=== PATIENT | male | born 1960 | race Caucasian/White ===

== ENCOUNTER 2020-10-26 07:56 | Outpatient (CLI) | payer OTHER ==
[2020-10-26] MEDS ORDERED: Iopamidol-370 76% 500 ML 1 ML ONE (13:48)
== END 2020-10-26 07:57 | disposition home or self-care (01) ==
LOC: BICCT 07:56
PROVIDERS: ATTEND Urology
DX: C61 Malignant neoplasm of prostate (principal); R16.0 Hepatomegaly, not elsewhere classified; K76.0 Fatty (change of) liver, not elsewhere classified; K76.89 Other specified diseases of liver; N28.1 Cyst of kidney, acquired; M89.8X8 Other specified disorders of bone, other site
CPT/HCPCS: 74177; Q9967

== ENCOUNTER 2020-11-03 09:53 | Outpatient (CLI) | payer OTHER | END 2020-11-03 09:54 | disposition home or self-care (01) | LOC: BICRAD 09:53 | PROVIDERS: ATTEND Urology | DX: C61 Malignant neoplasm of prostate (principal); Z87.891 Personal history of nicotine dependence | CPT/HCPCS: 71046 ==

== ENCOUNTER 2020-12-27 09:42 | Outpatient (CLI) | payer OTHER | END 2020-12-27 09:43 | disposition home or self-care (01) | LOC: LABBT 09:42 | PROVIDERS: ATTEND Urology | DX: Z01.818 Encounter for other preprocedural examination (principal); Z20.822 Contact with and (suspected) exposure to COVID-19; Z12.5 Encounter for screening for malignant neoplasm of prostate; C61 Malignant neoplasm of prostate; R97.20 Elevated prostate specific antigen [PSA]; D45 Polycythemia vera; R74.8 Abnormal levels of other serum enzymes; K40.90 Unilateral inguinal hernia, without obstruction or gangrene, not specified as recurrent; K42.9 Umbilical hernia without obstruction or gangrene; N40.0 Benign prostatic hyperplasia without lower urinary tract symptoms; N52.9 Male erectile dysfunction, unspecified; Z87.891 Personal history of nicotine dependence | CPT/HCPCS: 71046; 80053; 81001; 85027; 85610; 85730; 86850; 86900; 86901; 87086; 93005; 93010; U0003; U0005 ==

== ENCOUNTER 2020-12-27 14:00 | Inpatient (IN) | payer OTHER ==
[2020-12-27 12:40] LABS: Bilirubin Neg (Negative); Blood, Urine Negative (Negative); Clarity Clear (Clear); Glucose, Urine (Dipstick) Normal (Negative); Ketone, Urine Negative (Negative); Leukocyte Negative (Negative); Nitrite Negative (Negative); Protein, Urine (Dipstick) Negative (Neg-Trace); Specific Gravity, Urine 1.015 (1.002-1.036); Urobilinogen Normal mg/dL (Less than 2)
[2020-12-27 12:47] LABS: Hemoglobin 15.7 g/dL (13.5-17.5); Mean Corpuscular HGB CONC 32.6 g/dL (32.0-36.0); Mean Corpuscular Hemoglobin 31.4 pg (27.0-33.0); Mean Corpuscular Volume 96.2 fl (81.2-95.1); Mean Platelet Volume 11.3 fl (7.4-10.4); Platelet Count 209 10x3/uL (150-450); RBC Distribution Width 12.4 % (11.5-14.5); White Blood Cell (WBC) Count 6.7 10x3/uL (3.5-10.5)
[2020-12-27 12:48] LABS: RBC/HPF 0-3 HPF (0-3); WBC/HPF 0-3 HPF (0-3)
[2020-12-27 12:49] LABS: Bacteria/HPF Rare-Few HPF (None Seen); Mucous/LPF Few LPF (<2+); Squamous Epithelial None Seen HPF (0-3)
[2020-12-27 13:09] LABS: PTT 27.6 sec (22.0-33.0); Prothrombin Time 10.9 sec (9.5-12.1)
[2020-12-27 13:14] LABS: ALT (SGPT) 65 U/L (8-55); AST (SGOT) 33 U/L (5-34); Albumin 4.7 g/dL (3.5-5.0); Alkaline Phosphatase 65 U/L (40-110); Anion Gap 14 mmol/L (10-20); BUN (Urea Nitrogen) 20 mg/dL (8.4-25.7); Bilirubin, Total 0.7 mg/dL (0.2-1.2); Calc. Creatinine Clearance 0 mL/min (70-130); Calcium 10.1 mg/dL (7.8-10.44); Carbon Dioxide 27 mmol/L (22-29); Chloride 101 mmol/L (98-107); Globulin 3.2 g/dL (2.4-3.5); Glucose 120 mg/dL (70-105); Potassium 4.5 mmol/L (3.5-5.1); Protein, Total 7.9 g/dL (6.0-8.3); Sodium 137 mmol/L (136-145)
[2020-12-28 11:48] LABS: SARS-CoV-2 PCR by NAA Not Detected (NotDetected)
[2020-12-29 10:51] VITALS: BMI 31.0
[2021-01-01] MEDS ORDERED: Fentanyl 250 MCG/5 ML VIAL ONE (06:09)
[2021-01-01] MEDS ORDERED: Levofloxacin 500 mg/D5W 100 ml Premix Bag ONE (06:13)
[2021-01-01] MEDS ORDERED: ceFOXitin 1 GM VIAL ONE ×2 (06:15→09:41)
[2021-01-01] MEDS ORDERED: Sodium Chloride 0.9% 100 ML ONE (06:15)
[2021-01-01] MEDS ORDERED: Bupivacaine 0.25% HCL 30 ML VIAL ONE (07:14)
[2021-01-01] MEDS ORDERED: Lidocaine 1% w/Epinephrine 1:100K 20 ML VIAL ONE (07:14)
[2021-01-01] MEDS ORDERED: Midazolam HCl 2 mg/2 ml Vial ONE (07:19)
[2021-01-01] MEDS ORDERED: Rocuronium Bromide 50 MG/5 ML VIAL ONE (07:27)
[2021-01-01] MEDS ORDERED: Dexamethasone 20 MG/5 ML VIAL ONE (07:39)
[2021-01-01] MEDS ORDERED: Rocuronium Bromide 10 MG/ML (10ML VIAL) ONE (07:39)
[2021-01-01] MEDS ORDERED: Lidocaine 1% PF 5 ML VIAL ONE (07:39)
[2021-01-01] MEDS ORDERED: PROPOFOL 200 MG/20 ML VIAL ONE (07:39)
[2021-01-01] MEDS ORDERED: Bupivacaine HCl 0.5%/Epinephrine 1:200,000/PF 30 ml Vial ONE (07:39)
[2021-01-01] MEDS ORDERED: Ketorolac Tromethamine 30 MG/ML VIAL ONE (07:39)
[2021-01-01] MEDS ORDERED: Ondansetron PF 4 MG/2 ML Vial ONE (07:39)
[2021-01-01] MEDS ORDERED: Glycopyrrolate 0.2 MG/ML 5 ML SYRINGE ONE (07:39)
[2021-01-01] MEDS ORDERED: Ondansetron HCl/PF 4 MG/2 ML Vial IVP PRN (09:34)
[2021-01-01] MEDS ORDERED: Promethazine HCl 25 MG/ML VIAL IM PRN (09:34)
[2021-01-01] MEDS ORDERED: Promethazine HCl 25 MG/ML VIAL SLOW IVP PRN (09:34)
[2021-01-01] MEDS ORDERED: Fentanyl 100 MCG/2 ML VIAL ONE ×2 (10:49→12:46)
[2021-01-01] MEDS ORDERED: B & O ONE (12:11)
[2021-01-01] MEDS ORDERED: Mag-Al 1200 mg/1200 mg/30 ML UDCUP PO PRN (13:43)
[2021-01-01] MEDS ORDERED: diphenhydrAMINE 50 MG/ML VIAL IVP PRN (13:43)
[2021-01-01] MEDS ORDERED: Phenazopyridine HCl 97.5 MG TABLET PO PRN (13:43)
[2021-01-01] MEDS ORDERED: Acetaminophen 500 MG TAB PO PRN (13:43)
[2021-01-01] MEDS ORDERED: hydrALAZINE 20 MG/ML VIAL SLOW IVP PRN ×2 (13:43)
[2021-01-01] MEDS ORDERED: Morphine 2 MG/ML VIAL SLOW IVP PRN (13:43)
[2021-01-01] MEDS ORDERED: HYDROcodone/Acetaminophen 10/325 mg Tablet PO PRN ×2 (13:43)
[2021-01-01] MEDS ORDERED: Morphine 4 MG/ML VIAL SLOW IVP PRN (13:43)
[2021-01-01] MEDS ORDERED: Ondansetron PF 4 MG/2 ML Vial IVP PRN (13:43)
[2021-01-01] MEDS ORDERED: Oxybutynin 5 MG TAB PO PRN (13:43)
[2021-01-01] MEDS ORDERED: Zolpidem Tartrate 5 MG TAB PO PRN (13:43)
[2021-01-01] MEDS ORDERED: traMADol HCl 50 MG TAB PO PRN (13:48)
[2021-01-01 15:24] LABS: #Monocytes 0.5 thou/uL (0.11-0.59); #Neutrophils 17.9 thou/uL (1.40-6.50); %Eosinophils 0.2 % (0.0-10.0); %Lymphocytes 5.1 % (21.0-51.0); %Monocytes 2.6 % (0.0-10.0); Mean Corpuscular HGB CONC 34.9 g/dL (32.0-36.0); Mean Corpuscular Hemoglobin 33.6 pg (27.0-31.0); Mean Corpuscular Volume 96.3 fL (78.0-98.0); Mean Platelet Volume 8.7 fL (7.4-10.4); Platelet Count 205 thou/uL (130-400); RBC Distribution Width 11.6 % (11.5-14.5); Red Blood Cell (RBC) Count 4.46 mill/uL (4.70-6.10); White Blood Cell (WBC) Count 19.5 thou/uL (4.8-10.8)
[2021-01-01 15:40] LABS: Anion Gap 14 mmol/L (10-20); BUN (Urea Nitrogen) 27 mg/dL (8.4-25.7); Calc. Creatinine Clearance 106 mL/min (70-130); Calcium 8.3 mg/dL (7.8-10.44); Carbon Dioxide 23 mmol/L (22-29); Chloride 106 mmol/L (98-107); Glucose 177 mg/dL (70-105); Potassium 4.3 mmol/L (3.5-5.1); Sodium 139 mmol/L (136-145)
[2021-01-01] MEDS: Sodium Chloride 0.9% 1,000 ML IV SCH (19:28)
[2021-01-01] MEDS: Docusate 100 MG CAP PO SCH (20:05)
[2021-01-01] MEDS: Famotidine/PF 20 mg/2ml Vial SLOW IVP SCH (20:05)
[2021-01-02 05:29] LABS: #Eosinphils 0.1 thou/uL (0.0-0.7); #Lymphocytes 1.5 thou/uL (1.20-3.40); #Monocytes 1.1 thou/uL (0.11-0.59); %Basophils 0.2 % (0.0-1.0); %Eosinophils 0.5 % (0.0-10.0); %Lymphocytes 12.8 % (21.0-51.0); %Monocytes 9.2 % (0.0-10.0); %Neutrophils 77.5 % (42.0-75.0); Hemoglobin 12.9 g/dL (14.0-18.0); Mean Corpuscular Hemoglobin 33.3 pg (27.0-31.0); Mean Corpuscular Volume 97.8 fL (78.0-98.0); Mean Platelet Volume 8.7 fL (7.4-10.4); Platelet Count 187 thou/uL (130-400); RBC Distribution Width 11.6 % (11.5-14.5); Red Blood Cell (RBC) Count 3.88 mill/uL (4.70-6.10); White Blood Cell (WBC) Count 11.7 thou/uL (4.8-10.8)
[2021-01-02] MEDS: Sodium Chloride 0.9% 1,000 ML IV SCH (05:35)
[2021-01-02 05:41] LABS: Anion Gap 9 mmol/L (10-20); BUN (Urea Nitrogen) 14 mg/dL (8.4-25.7); Calc. Creatinine Clearance 147 mL/min (70-130); Carbon Dioxide 25 mmol/L (22-29); Chloride 109 mmol/L (98-107); Glucose 103 mg/dL (70-105); Potassium 3.9 mmol/L (3.5-5.1); Sodium 139 mmol/L (136-145)
[2021-01-02] MEDS: Famotidine/PF 20 mg/2ml Vial SLOW IVP SCH ×2 (09:10→20:55)
[2021-01-02] MEDS: Amlodipine 5 MG TAB PO SCH (09:11)
[2021-01-02] MEDS: Ketorolac Tromethamine 30 MG/ML VIAL IVP SCH ×3 (09:11→22:45)
[2021-01-02] MEDS: Docusate 100 MG CAP PO SCH ×2 (09:11→20:55)
[2021-01-02] MEDS: cefTRIAXone\\ROCEPHIN 1 GM in Sodium Chloride 0.9% 100 ML IVPB SCH (14:53)
[2021-01-03] MEDS: Ketorolac Tromethamine 30 MG/ML VIAL IVP SCH ×3 (02:28→14:55)
[2021-01-03 05:41] LABS: #Basophils 0.1 thou/uL (0.0-0.2); #Eosinphils 0.2 thou/uL (0.0-0.7); #Lymphocytes 2.1 thou/uL (1.20-3.40); #Monocytes 0.6 thou/uL (0.11-0.59); #Neutrophils 5.7 thou/uL (1.40-6.50); %Basophils 0.6 % (0.0-1.0); %Eosinophils 2.1 % (0.0-10.0); %Lymphocytes 24.2 % (21.0-51.0); %Monocytes 6.8 % (0.0-10.0); %Neutrophils 66.3 % (42.0-75.0); Hemoglobin 12.3 g/dL (14.0-18.0); Mean Corpuscular HGB CONC 33.5 g/dL (32.0-36.0); Mean Corpuscular Hemoglobin 32.8 pg (27.0-31.0); Mean Corpuscular Volume 97.7 fL (78.0-98.0); Mean Platelet Volume 8.8 fL (7.4-10.4); Platelet Count 172 thou/uL (130-400); RBC Distribution Width 11.7 % (11.5-14.5); Red Blood Cell (RBC) Count 3.77 mill/uL (4.70-6.10); White Blood Cell (WBC) Count 8.6 thou/uL (4.8-10.8)
[2021-01-03 06:05] LABS: Anion Gap 11 mmol/L (10-20); BUN (Urea Nitrogen) 13 mg/dL (8.4-25.7); Calc. Creatinine Clearance 147 mL/min (70-130); Calcium 7.9 mg/dL (7.8-10.44); Carbon Dioxide 23 mmol/L (22-29); Chloride 109 mmol/L (98-107); Glucose 97 mg/dL (70-105); Potassium 3.7 mmol/L (3.5-5.1); Sodium 139 mmol/L (136-145)
[2021-01-03] MEDS: Amlodipine 5 MG TAB PO SCH (09:16)
[2021-01-03] MEDS: Docusate 100 MG CAP PO SCH (09:18)
[2021-01-03] MEDS: Famotidine/PF 20 mg/2ml Vial SLOW IVP SCH (09:19)
[2021-01-03] MEDS: cefTRIAXone\\ROCEPHIN 1 GM in Sodium Chloride 0.9% 100 ML IVPB SCH (14:54)
[2021-01-03 16:18] VITALS: BP 124/75; TEMP 99.1
== END 2021-01-03 19:30 | disposition home or self-care (01) | DRG 708 ==
LOC: SURG A 01-01 05:54 → EDSTATUS 01-01 14:00 → SJJU 01-01 15:27
PROVIDERS: ADMIT Urology; ATTEND Urology
PROC: 0VT04ZZ Resection of Prostate, Percutaneous Endoscopic Approach (ICD-10-PCS; principal; 2021-01-01)
PROC: 0VT34ZZ Resection of Bilateral Seminal Vesicles, Percutaneous Endoscopic Approach (ICD-10-PCS; 2021-01-01)
PROC: 0VTQ4ZZ Resection of Bilateral Vas Deferens, Percutaneous Endoscopic Approach (ICD-10-PCS; 2021-01-01)
PROC: 8E0W4CZ Robotic Assisted Procedure of Trunk Region, Percutaneous Endoscopic Approach (ICD-10-PCS; 2021-01-01)
DX: C61 Malignant neoplasm of prostate (principal); Z20.822 Contact with and (suspected) exposure to COVID-19; D45 Polycythemia vera; K40.90 Unilateral inguinal hernia, without obstruction or gangrene, not specified as recurrent; K42.9 Umbilical hernia without obstruction or gangrene; N40.0 Benign prostatic hyperplasia without lower urinary tract symptoms; N52.9 Male erectile dysfunction, unspecified; N28.1 Cyst of kidney, acquired; R73.03 Prediabetes; M19.90 Unspecified osteoarthritis, unspecified site; R00.1 Bradycardia, unspecified; Z79.899 Other long term (current) drug therapy; Z98.890 Other specified postprocedural states; Z87.891 Personal history of nicotine dependence
CPT/HCPCS: 36415; 80048; 80053; 81001; 82570; 85025; 85027; 85610; 85730; 86850; 86900; 86901; 87086; 88309; 88341; 88342; 93005; 93010; J0694; J0696; J1100; J1885; J1956; J2250; J2405; J2704; J3010; J3490; S0020; S0028; U0003; U0005

== ENCOUNTER 2021-01-11 19:49 | Emergency (ER) | payer OTHER | END 2021-01-11 20:56 | disposition home or self-care (01) | LOC: ERS 19:49 | DX: Z46.6 Encounter for fitting and adjustment of urinary device (principal); Z87.891 Personal history of nicotine dependence | CPT/HCPCS: 99283 ==

== ENCOUNTER 2021-01-16 07:30 | Outpatient (CLI) | payer OTHER ==
[2021-01-16] MEDS ORDERED: Iopamidol-370 76% 500 ML 1 ML ONE (09:57)
== END 2021-01-16 07:31 | disposition home or self-care (01) ==
LOC: RAD 07:30
PROVIDERS: ATTEND Urology
DX: C61 Malignant neoplasm of prostate (principal)
CPT/HCPCS: 51600; 74430; Q9967

== ENCOUNTER 2024-02-13 07:30 | Outpatient (CLI) | payer OTHER | END 2024-02-13 07:31 | disposition home or self-care (01) | LOC: BICCT 07:30 | PROVIDERS: ATTEND Family Medicine | DX: R31.29 Other microscopic hematuria (principal); R91.1 Solitary pulmonary nodule; N28.1 Cyst of kidney, acquired; K76.0 Fatty (change of) liver, not elsewhere classified; K76.9 Liver disease, unspecified; K57.30 Diverticulosis of large intestine without perforation or abscess without bleeding | CPT/HCPCS: 74178; 82565; Q9967 ==

== ENCOUNTER 2024-06-11 09:10 | Outpatient (CLI) | payer OTHER | END 2024-06-11 09:11 | disposition home or self-care (01) | LOC: BICCT 09:10 | PROVIDERS: ATTEND Family Medicine | DX: R91.1 Solitary pulmonary nodule (principal) | CPT/HCPCS: 71250 ==

== ENCOUNTER 2024-07-02 08:45 | Outpatient (CLI) | payer OTHER | END 2024-07-02 08:46 | disposition home or self-care (01) | LOC: PET 08:45 | PROVIDERS: ATTEND Student in an Organized Health Care Education/Training Program | DX: R91.1 Solitary pulmonary nodule (principal) | CPT/HCPCS: 78815; A9552 ==